=== PATIENT | female | born 1945 | race Caucasian/White ===

== ENCOUNTER → 2020-10-04 | Outpatient (CLI) | payer MEDICARE, BC ==
--- NOTE | 2020-10-04 11:38 | 2DMMODE ---
[place] [address] 2 D/M-MODE ECHOCARDIOGRAM Name: MARI GARCIA Room: [facility]#: [id number] Admission: 10/04/20 Attend Phys: Armani Xavier, Discharge: Date of : 45 Date of Service: 10/04/20 1137 Report #: [id number] THIS REPORT FOR: cc: Tha Bar MD, Matthew W. MD Holkins, John M. MD [facility] ~ APPROVED REPORT Study performed: 10/04/2020 10:02:45 EXAM: Comprehensive 2D, Doppler, and color-flow Echocardiogram Patient Location: Out-Patient BSA: 2.05 HR: 68 bpm BP: 124/64 mmHg Other Information Study Quality: Good Indications Bradycardia 2D Dimensions IVSd: 11.14 (7-11mm) LVOT Diam: 20.45 (18-24mm) LVDd: 46.26 mm PWd: 10.29 (7-11mm) Ascending Ao: 26.63 (22-36mm) LVDs: 23.39 (25-40mm) Aortic Root: 23.67 mm Volumes Left Atrial Volume (Systole) LA ESV Index: 12.50 mL/m2 Aortic Valve AoV Peak Js.: 1.43 m/s AO Peak Gr.: 8.18 mmHg LVOT Max P.28 mmHg AO Mean Gr.: 4.92 mmHg LVOT Mean P.25 mmHg LVOT Max V: 0.75 m/s AO V2 VTI: 31.99 cm LVOT Mean V: 0.52 m/s GUILLERMO (VTI): 2.40 cm2 LVOT V1 VTI: 23.37 cm Mitral Valve E/A Ratio: 0.83 [place] [address] 2 D/M-MODE ECHOCARDIOGRAM Name: MARI GARCIA Room: [facility]#: [id number] Admission: 10/04/20 Attend Phys: Armani Xavier, Discharge: Date of : 45 Date of Service: 10/04/20 1137 Report #: [id number] MV Decel. Time: 232.06 ms MV E Max Js.: 0.73 m/s MV PHT: 67.30 ms MVA (PHT): 3.27 cm2 TDI E/Lateral E': 8.11 E/Medial E': 8.11 Medial E' Js.: 0.09 m/s Lateral E' Js.: 0.09 m/s Pulmonary Valve PV Peak Js.: 1.26 m/s PV Peak Gr.: 6.34 mmHg Left Ventricle The left ventricle is normal size. There is normal LV segmental wall motion. There is normal left ventricular wall thickness. Left ventricular systolic function is normal. The left ventricular ejection fraction is within the normal range. LVEF is 60%. Grade I - abnormal relaxation pattern. Right Ventricle The right ventricle is normal size. The right ventricular systolic function is normal. Atria The left atrium size is normal. The right atrium size is normal. Aortic Valve Mild aortic valve sclerosis. Mild aortic regurgitation. There is no aortic valvular stenosis. Mitral Valve The mitral valve is normal in structure. There is no mitral valve regurgitation noted. No evidence of mitral valve stenosis. Tricuspid Valve The tricuspid valve is normal in structure. There is no tricuspid valve regurgitation noted. Pulmonic Valve The pulmonary valve is normal in structure. There is no pulmonic valvular regurgitation. Great Vessels The aortic root is normal in size. IVC [place] [address] 2 D/M-MODE ECHOCARDIOGRAM Name: MARI GARCIA Room: [facility]#: [id number] Admission: 10/04/20 Attend Phys: Armani Xavier, Discharge: Date of : 45 Date of Service: 10/04/20 1137 Report #: [id number] collapses >50% with inspiration. Pericardium There is no pericardial effusion. <Conclusion> The left ventricle is normal size. There is normal left ventricular wall thickness. Left ventricular systolic function is normal. The left ventricular ejection fraction is within the normal range. LVEF is 60%. Grade I - abnormal relaxation pattern. The right ventricle is normal size. The left atrium size is normal. Mild aortic valve sclerosis. Mild aortic regurgitation. There is no aortic valvular stenosis. The mitral valve is normal in structure. The tricuspid valve is normal in structure. IVC is normal in size and collapses >50% with inspiration. There is no pericardial effusion. There is normal LV segmental wall motion. <ELECTRONICALLY SIGNED> By: Yosvany Avila MD, FACC 10/04/20 1137 1137 1137 Yosvany Avila MD, FACC /INF
== END ==
LOC: M.CRD 09-29 08:00
PROVIDERS: ATTEND Internal Medicine Cardiovascular Disease
DX: I35.1 Nonrheumatic aortic (valve) insufficiency (principal)